=== PATIENT | female | born 1935 | race African-American/Black ===

== ENCOUNTER 2016-06-01 14:19 | Inpatient (IN) | payer MEDICARE, MEDICAID ==
[~2016-06-01] VITALS: Ht 160 cm; Wt 87.7 kg
[~2016-06-01 14:19] MED LIST: ALBUTEROL SULF0.5 ML IH; ARTIFICIAL TEA1 EACH OP; AZITHROMYCIN250 MG PO; CARAFATE 11 GM/10 ML PO; CARVEDILOL 1212.5 MG PO; FERROUS SULFAT325 MG PO; FUROSEMIDE 20MG20 MG PO; GABAPENTIN300 MG PO; HUMALOG KW100 UNIT/1 SC; IBUPROFEN800 MG PO; IMODIUM 2MG. CAP2 MG PO; IMODIUM A-1 MG/7.5 M PO; INVANZ1 G1 IM; KEPPRA 500 MG500 MG PO; KEPPRA500 MG PO; LEVAQUIN500 MG PO; LOSARTAN POTAS100 MG PO; METFORMIN1000 MG PO; MICRO-K 10 MEQ10 MEQ PO; MINTOX PO; MIRALAX17 GM/PACK PO; MULTI VITAMINS1 TA1 PO; NORVASC 10MG. T10 MG PO; PRILOSEC20 M1 PO; PROTONIX40 MG PO; ROBITUSSIN DM S10 ML NG; ROCEPHIN 1 GM VI1 GM IM; SENNA LAXATIVE8.6 MG PO; TOBRAMYCIN300 MG/5 M IV; TRAMADOL 50MG T50 M1 PO; TYLENOL 8 HOUR650 MG PO; VITAMIN D22000 IU PO; VITAMIN D50000 I1 PO; VITAMIN D50000 IU PO; Z-TAB1 TAB PO; ZITHROMAX Z-PA250 M2 PO; ZOFRAN ODT8 MG PO
[2016-06-01 14:20] VITALS: BP 127/57
--- NOTE | 2016-06-01 14:57 | Emergency Room Report ---
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 N Clinical Suspician of Infection? N Mental Status: 1 - Regular (Normal Baseline) Sepsis Risk: Have you (or family members/close friends) recently traveled outside the [place]? N If Yes, where/when: Have you had exposure to infectious disease within the past month? N TB? Other? Specify: Source patient, RN notes reviewed, [facility] records Exam Limitations no limitations Comment Sent to the ED from [place] because she reportedly had a high K+ level on labs drawn this AM. Pt has no complaints but she does have a history of CKD [facility] Cardiac Chest Pain Chest pain indicative of cardiac No ALLERGIES Coded Allergies: NSAIDS (Non-Steroidal Anti-Inflamma (05/10/16) tuberculin, purified protein deriva (From TUBERSOL) (04/13/15) Home Medications Reported Medications Dextran 70/Hypromellose (Artificial Tears) 1 EACH OP BID OMEPRAZOLE MAGNESIUM (Prilosec 20MG) 20 MG PO DAILY MULTIVITAMIN (Multivitamins) 1 SGL PO DAILY ALBUTEROL-IPRATROPIUM (Iprat-Albut 0.5-3(2.5) MG/3 Ml) 3 ML IH QIDP PRN BREATHING Insulin Lispro (Humalog Kwikpen) 0 SC QID AMLODIPINE BESYLATE (Norvasc) 10 MG PO DAILY Carvedilol (Carvedilol 12.5MG) 12.5 MG PO BID Losartan Potassium (Losartan 100MG) 100 MG PO DAILY Acetaminophen (Tylenol 8 Hour) 650 MG PO Q6HPRN Gabapentin (Gabapentin 300MG) 300 MG PO QHS Levetiracetam (Keppra 500 Mg Tablet) 500 MG PO BID METFORMIN HCL (Metformin) 1,000 MG PO BID History Medical History General CAD? No Angina: No [place]: No Hypertension? Yes Hyperlipidemia? Yes CHF? Yes DVT? No PE? No COPD? No Asthma? No Anemia? No GERD? Yes Gastric ulcers? No GI Bleed? No Hernia? No Thyroid Problems? No Hypothyroidism? No CVA? Yes Seizures? Yes Diabetes? Yes Insulin Dependent: Yes Insulin Pump: No Home FSBS? Yes Renal Insuffiency? No End Stage Renal Disease? No UTI? Yes Stones? No BPH? No GB Disease: No Nephritic Syndrome? No Asplenia? No Hepatitis? No Sickle Cell Disease? No Arthritis? No Migraines? No Cataracts? No Glaucoma? No MRSA? No HIV? No TB? No Anxiety? No Depression? No Cancer? No More? Yes Additional hx: E-COLI, OSTEOPOROSIS Immunization Hx Ped.Immunizations UTD Yes DT/Tetanus Unknown Flu 12/30/15 Pneumonia Refuses Surgical Hx Previous Surgery?Y BRAIN ANEURSYM Hysterect Social History Smoking Hx Smoker: Never Smoker Tobacco: No Packs/day N/A Are you/the child exposed to second-hand smoke: No Alcohol Alcohol: No Review of Systems All Other Systems Reviewed and Negative Constitutional see HPI Eyes no symptoms reported Respiratory see HPI Cardiovascular see HPI Physical Exam Vital Signs Vital Signs Date Time Temp Pulse Resp B/P Pulse O2 O2 Flow FiO2 Ox Delivery Rate 06/02 2015 98.0 57 20 119/47 99 06/01 1934 98.0 52 20 109/47 93 06/01 1815 56 18 107/51 96 06/01 1724 98.5 86 18 93/66 100 06/01 1531 98.5 99 18 93/66 100 06/01 1452 98.5 68 18 119/44 97 06/01 1420 98.5 62 18 127/57 97 General Appearance normal appearance, WD/WN, no apparent distress Respiratory Status No: respiratory distress. 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 No Results/Orders Laboratory Tests 06/01/16 1925: Sodium 145, Potassium 5.9 H, Chloride 117 H, Carbon Dioxide 15 L, BUN 22 H, Creatinine 2.0 H, Estimated Creat Clear 29 L, Estimated GFR (MDRD) 24 L, Glucose 160 H, Calcium 8.8 06/01/16 1745: Potassium 5.9 H 06/01/16 1450: Sodium 145, Potassium 6.9 *H, Chloride 118 H, Carbon Dioxide 17 L, BUN 23 H, Creatinine 1.9 H, Estimated Creat Clear 31 L, Estimated GFR (MDRD) 25 L, Glucose 84, Calcium 8.7, Total Bilirubin 0.2, AST 13 L, ALT 21, Alkaline Phosphatase 76, Total Protein 7.7, Albumin 2.1 L, Globulin 5.6 H, Albumin/ Globulin Ratio 0.4 L, WBC 6.0, RBC 3.43 L, Hgb 9.6 L, Hct 33.0 L, MCV 96.1, RDW 15.2, Plt Count 179, MPV 8.4, Gran % 53.9, Gran # 3.2, Lymphocytes % 39.5, Monocytes % 4.9, Eosinophils % 0.9, Basophils % 0.9, Lymphocytes # 2.4, Monocytes # 0.3, Eosinophils # 0.1, Basophils # 0.1, PUBS MCHC 29.2 L, MCH 28.1 Current Medication Orders Sig/Juan Start time Last Medication Dose Route Stop Time Status Admin Albuterol 2.5 MG ONCE ONE 06/01 1630 DC 06/01 INH 06/01 1631 1639 Albuterol 2.5 MG ONCE ONE 06/01 1630 DC 06/01 INH 06/01 1631 1639 Dextrose 50 ML ONCE ONE 06/01 1630 DC 06/01 IVP 06/01 1631 1635 Dextrose 50 ML ONCE ONE 06/01 1630 DC 06/01 IVP 06/01 1631 1636 Insulin Human Regular 10 UNITS ONCE ONE 06/01 1630 DC 06/01 IVP 06/01 1631 1636 Sodium Polystyrene 15 GM ONCE ONE 06/01 1630 DC 06/01 Sulfonate PO 06/01 1631 1635 Dextrose 0 .STK-MED ONE 06/01 1626 DC .ROUTE Insulin Human Regular 0 .STK-MED ONE 06/01 1626 DC .ROUTE Sodium Polystyrene 0 .STK-MED ONE 06/01 1625 DC Sulfonate .ROUTE Sodium Chloride 10 ML PRN PRN 06/01 1545 AC IV 06/02 1543 Orders Procedure Date/time Status ARTERIAL BLOOD GAS REQUEST 06/01 2024 Active BASIC METABOLIC PROFILE 06/01 1847 Complete POTASSIUM 06/01 1733 Complete RT REQUEST ALBUTEROL NEB 06/01 1620 Active IV SALINE LOCK 06/01 1543 Active CBC WITH AUTO DIFF 06/01 1543 Complete CHEM 12 PROFILE 06/01 154 Complete ELECTROCARDIOGRAM REQUEST 06/01 1455 Active 12 LEAD EKG-SMITH (INITIAL) 06/01 UNK Active CM/EKG CM/EKG EKG NSR with sinus arrhythmia, Low voltage, NS STT changes Departure Departure Time of Disposition 2022 Disposition Still a Patient Clinical Impression Primary Impression: Hyperkalemia Secondary Impressions: Chronic kidney disease, stage 3, Metabolic acidosis Condition STABLE Referrals Kiel Blank MD Additional Instructions Admitted to OBS by Dr. Blank....give IVF's and more kayexalate and albuterol nebs to lower K+ Discharge Counseling Counseled pt/family regarding diagnosis, test results, follow up needs ED Critical Care Critical Care No If Critical Care minutes are documented, the time involved in the performance of seperately reportable procedures was not counted toward critical care time documented. I directly delivered medical care to this critically ill and/or injured patient. Timely evaluation and treatment was necessary to address the significant organ system(s) dysfunction present in this patient. at 2028
--- NOTE | 2016-06-01 14:57 | Emergency Room Report ---
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 N Clinical Suspician of Infection? N Mental Status: 1 - Regular (Normal Baseline) Sepsis Risk: Have you (or family members/close friends) recently traveled outside the [place]? N If Yes, where/when: Have you had exposure to infectious disease within the past month? N TB? Other? Specify: Source patient, RN notes reviewed, [facility] records Exam Limitations no limitations Comment Sent to the ED from [place] because she reportedly had a high K+ level on labs drawn this AM. Pt has no complaints but she does have a history of CKD from the records at the [facility] Cardiac Chest Pain Chest pain indicative of cardiac No ALLERGIES Coded Allergies: NSAIDS (Non-Steroidal Anti-Inflamma (05/10/16) tuberculin, purified protein deriva (From TUBERSOL) (04/13/15) Home Medications Reported Medications Dextran 70/Hypromellose (Artificial Tears) 1 EACH OP BID OMEPRAZOLE MAGNESIUM (Prilosec 20MG) 20 MG PO DAILY MULTIVITAMIN (Multivitamins) 1 SGL PO DAILY ALBUTEROL-IPRATROPIUM (Iprat-Albut 0.5-3(2.5) MG/3 Ml) 3 ML IH QIDP PRN BREATHING Insulin Lispro (Humalog Kwikpen) 0 SC QID AMLODIPINE BESYLATE (Norvasc) 10 MG PO DAILY Carvedilol (Carvedilol 12.5MG) 12.5 MG PO BID Losartan Potassium (Losartan 100MG) 100 MG PO DAILY Acetaminophen (Tylenol 8 Hour) 650 MG PO Q6HPRN Gabapentin (Gabapentin 300MG) 300 MG PO QHS Levetiracetam (Keppra 500 Mg Tablet) 500 MG PO BID METFORMIN HCL (Metformin) 1,000 MG PO BID History Medical History General CAD? No Angina: No [place]: No Hypertension? Yes Hyperlipidemia? Yes CHF? Yes DVT? No PE? No COPD? No Asthma? No Anemia? No GERD? Yes Gastric ulcers? No GI Bleed? No Hernia? No Thyroid Problems? No Hypothyroidism? No CVA? Yes Seizures? Yes Diabetes? Yes Insulin Dependent: Yes Insulin Pump: No Home FSBS? Yes Renal Insuffiency? No End Stage Renal Disease? No UTI? Yes Stones? No BPH? No GB Disease: No Nephritic Syndrome? No Asplenia? No Hepatitis? No Sickle Cell Disease? No Arthritis? No Migraines? No Cataracts? No Glaucoma? No MRSA? No HIV? No TB? No Anxiety? No Depression? No Cancer? No More? Yes Additional hx: E-COLI, OSTEOPOROSIS Immunization Hx Ped.Immunizations UTD Yes DT/Tetanus Unknown Flu 12/30/15 Pneumonia Refuses Surgical Hx Previous Surgery?Y BRAIN ANEURSYM Hysterect Social History Smoking Hx Smoker: Never Smoker Tobacco: No Packs/day N/A Are you/the child exposed to second-hand smoke: No Alcohol Alcohol: No Review of Systems All Other Systems Reviewed and Negative Constitutional see HPI Eyes no symptoms reported Respiratory see HPI Cardiovascular see HPI Physical Exam Vital Signs Vital Signs Date Time Temp Pulse Resp B/P Pulse O2 O2 Flow FiO2 Ox Delivery Rate 06/02 2015 98.0 57 20 119/47 99 06/01 1934 98.0 52 20 109/47 93 06/01 1815 56 18 107/51 96 06/01 1724 98.5 86 18 93/66 100 06/01 1531 98.5 99 18 93/66 100 06/01 1452 98.5 68 18 119/44 97 06/01 1420 98.5 62 18 127/57 97 General Appearance normal appearance, WD/WN, no apparent distress Respiratory Status No: respiratory distress. 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 No Results/Orders Laboratory Tests 06/01/16 1925: Sodium 145, Potassium 5.9 H, Chloride 117 H, Carbon Dioxide 15 L, BUN 22 H, Creatinine 2.0 H, Estimated Creat Clear 29 L, Estimated GFR (MDRD) 24 L, Glucose 160 H, Calcium 8.8 06/01/16 1745: Potassium 5.9 H 06/01/16 1450: Sodium 145, Potassium 6.9 *H, Chloride 118 H, Carbon Dioxide 17 L, BUN 23 H, Creatinine 1.9 H, Estimated Creat Clear 31 L, Estimated GFR (MDRD) 25 L, Glucose 84, Calcium 8.7, Total Bilirubin 0.2, AST 13 L, ALT 21, Alkaline Phosphatase 76, Total Protein 7.7, Albumin 2.1 L, Globulin 5.6 H, Albumin/ Globulin Ratio 0.4 L, WBC 6.0, RBC 3.43 L, Hgb 9.6 L, Hct 33.0 L, MCV 96.1, RDW 15.2, Plt Count 179, MPV 8.4, Gran % 53.9, Gran # 3.2, Lymphocytes % 39.5, Monocytes % 4.9, Eosinophils % 0.9, Basophils % 0.9, Lymphocytes # 2.4, Monocytes # 0.3, Eosinophils # 0.1, Basophils # 0.1, PUBS MCHC 29.2 L, MCH 28.1 Current Medication Orders Sig/Juan Start time Last Medication Dose Route Stop Time Status Admin Albuterol 2.5 MG ONCE ONE 06/01 1630 DC 06/01 INH 06/01 1631 1639 Albuterol 2.5 MG ONCE ONE 06/01 1630 DC 06/01 INH 06/01 1631 1639 Dextrose 50 ML ONCE ONE 06/01 1630 DC 06/01 IVP 06/01 1631 1635 Dextrose 50 ML ONCE ONE 06/01 1630 DC 06/01 IVP 06/01 1631 1636 Insulin Human Regular 10 UNITS ONCE ONE 06/01 1630 DC 06/01 IVP 06/01 1631 1636 Sodium Polystyrene 15 GM ONCE ONE 06/01 1630 DC 06/01 Sulfonate PO 06/01 1631 1635 Dextrose 0 .STK-MED ONE 06/01 1626 DC .ROUTE Insulin Human Regular 0 .STK-MED ONE 06/01 1626 DC .ROUTE Sodium Polystyrene 0 .STK-MED ONE 06/01 1625 DC Sulfonate .ROUTE Sodium Chloride 10 ML PRN PRN 06/01 1545 AC IV 06/02 1543 Orders Procedure Date/time Status ARTERIAL BLOOD GAS REQUEST 06/01 2024 Active BASIC METABOLIC PROFILE 06/01 1847 Complete POTASSIUM 06/01 1733 Complete RT REQUEST ALBUTEROL NEB 06/01 1620 Active IV SALINE LOCK 06/01 1543 Active CBC WITH AUTO DIFF 06/01 1543 Complete CHEM 12 PROFILE 06/01 154 Complete ELECTROCARDIOGRAM REQUEST 06/01 1455 Active 12 LEAD EKG-SMITH (INITIAL) 06/01 UNK Active CM/EKG CM/EKG EKG NSR with sinus arrhythmia, Low voltage, NS STT changes Departure Departure Time of Disposition 2022 Disposition Still a Patient Clinical Impression Primary Impression: Hyperkalemia Secondary Impressions: Chronic kidney disease, stage 3, Metabolic acidosis Condition STABLE Referrals Kiel Blank MD Additional Instructions Admitted to OBS by Dr. Blank....give IVF's and more kayexalate and albuterol nebs to lower K+ Discharge Counseling Counseled pt/family regarding diagnosis, test results, follow up needs ED Critical Care Critical Care No If Critical Care minutes are documented, the time involved in the performance of seperately reportable procedures was not counted toward critical care time documented. I directly delivered medical care to this critically ill and/or injured patient. Timely evaluation and treatment was necessary to address the significant organ system(s) dysfunction present in this patient. at 2028
[2016-06-01 16:06] LABS: HEMOGLOBIN 9.6 g/dL (12.2-16.2); LYMPH # 2.4 K/mm3 (0.7-4.5); LYMPH % 39.5 % (10-50.0)
[2016-06-01 20:39] LABS: ARTERIAL PO2 73.1 MMHG (80-100)
[2016-06-01 20:40] LABS: ALLEN'S TEST ACCEPTABLE; ARTERIAL ABE -11.8 MMOL/L (-2.4-+2.3); ARTERIAL TCO2 16.2 MMOL/L (23-27); OXYGEN ROOM AIR
[2016-06-01 22:57] VITALS: BP 127/53
[2016-06-01 23:51] VITALS: BP 125/84
[2016-06-02] VITALS (9 sets, daily range): BP systolic 98–152; BP diastolic 50–72
[2016-06-02] MEDS ORDERED: IMODIUM A-D2 M3 PO (02:06)
[2016-06-02] MEDS ORDERED: MIRTAZAPINE15 M1 PO (02:07)
[2016-06-02] MEDS ORDERED: PROSOURCE PLUS30 ML PO (02:10)
[2016-06-02] MEDS ORDERED: NYSTATIN OINTME15 GM EX (02:12)
[2016-06-02 06:44] LABS: HEMOGLOBIN 9.8 g/dL (12.2-16.2); LYMPH # 3.1 K/mm3 (0.7-4.5); LYMPH % 40.5 % (10-50.0)
--- NOTE | 2016-06-02 08:58 | HISTORY AND PHYSICAL REPORT ---
Demographics: Admit date: 06/01/16 Chief complaint: Hyperkalemia at shelter PRIMARY DIAGNOSIS: HYPERKALEMIA Allergies: Coded Allergies: NSAIDS (Non-Steroidal Anti-Inflamma (05/10/16) tuberculin, purified protein deriva (From TUBERSOL) (04/13/15) History of present illness: History of present illness: 81-year-old black female, resident of local shelter who was noticed on laboratory studies yesterday to have high potassium and was transferred to the emergency department. In the emergency department she was given calcium gluconate, insulin and fluids and one dose of Kayexalate and admitted to hospital for further evaluation. Of note, she is on angiotensin receptor sinan. Also of note, her potassium levels were normal on multiple tests here at the hospital over the past year. Past medical history: Family HX Family Hx Insignificant Yes Immunization HX Ped.Immunizations UTD Yes DT/Tetanus Unknown Flu 12/30/15 Pneumonia Refuses TB Test in last year No General CAD? No Angina: No [place]: No Hypertension? Yes Hyperlipidemia? Yes CHF? Yes DVT? No PE? No COPD? No Asthma? No Anemia? No GERD? Yes Gastric ulcers? No GI Bleed? No Hernia? No Thyroid Problems? No Hypothyroidism? No CVA? Yes Seizures? Yes Diabetes? Yes Insulin Dependent: Yes Insulin Pump: No Home FSBS? Yes Renal Insuffiency? No UTI? Yes Stones? No BPH? No GB Disease: No Nephritic Syndrome? No Asplenia? No Hepatitis? No Sickle Cell Disease? No Arthritis? No Migraines? No Cataracts? No Glaucoma? No MRSA? No HIV? No TB? No Anxiety? No Depression? No Cancer? No More? Yes Additional hx: E-COLI, OSTEOPOROSIS Past Surgical HX Previous Surgery?Y BRAIN ANEURSYM Hysterect Current home meds: Reported Medications Dextran 70/Hypromellose (Artificial Tears) 1 EACH OP BID OMEPRAZOLE MAGNESIUM (Prilosec 20MG) 20 MG PO DAILY MULTIVITAMIN (Multivitamins) 1 SGL PO DAILY ALBUTEROL-IPRATROPIUM (Iprat-Albut 0.5-3(2.5) MG/3 Ml) 3 ML IH QIDP PRN BREATHING Insulin Lispro (Humalog Kwikpen) 0 SC QID Loperamide HCl (Imodium A-D) 2 MG PO Q3HP PRN DIARRHEA Mirtazapine 15 MG PO DAILY Amino AC/Protein Hydr/Whey Pro (Prosource Plus Liquid Packet) 30 ML PO TID Nystatin (Nystatin Ointment 15GM) 1 JUNAID EX QIDP PRN SKIN IRRITATION AMLODIPINE BESYLATE (Norvasc) 10 MG PO DAILY Carvedilol (Carvedilol 12.5MG) 12.5 MG PO BID Losartan Potassium (Losartan 100MG) 100 MG PO DAILY Acetaminophen (Tylenol 8 Hour) 650 MG PO Q6HPRN Gabapentin (Gabapentin 300MG) 300 MG PO QHS Levetiracetam (Keppra 500 Mg Tablet) 500 MG PO BID METFORMIN HCL (Metformin) 1,000 MG PO BID Social Hx: Smoking HX Tobacco No Packs/day N/A Are you/the child exposed to second-hand smoke: No Alcohol Alcohol: No Hx of Drug Use Drug Use? No Patien't marital status is single Patient's support system is excellent Review of systems: Constitutional malaise, weakness. Respiratory No: no symptoms reported. Cardiovascular No no symptoms reported Gastrointestinal/Abdominal No no symptoms reported Genitourinary No: no symptoms reported. Musculoskeletal No: no symptoms reported. Neurological No: see HPI. Exam: Lab data for last 24 hours: Laboratory Tests 06/02/16 0630: WBC 7.6, RBC 3.41 L, Hgb 9.8 L, Hct 32.2 L, MCV 94.4, RDW 15.3, Plt Count 170 , MPV 8.8, Gran % 52.1, Gran # 3.9, Lymphocytes % 40.5, Monocytes % 5.9, Eosinophils % 1.0, Basophils % 0.6, Lymphocytes # 3.1, Monocytes # 0.4, Eosinophils # 0.1, Basophils # 0.1, PUBS MCHC 30.6 L, MCH 28.9 06/02/16 0605: Sodium 145, Potassium 6.0 H, Chloride 117 H, Carbon Dioxide 18 L, BUN 20 H, Creatinine 1.7 H, Estimated Creat Clear 35 L, Estimated GFR (MDRD) 29 L, Glucose 81, Calcium 8.8 06/01/165: ABG pH 7.27 L, ABG pCO2 (Temp Corrct 34.0 L, ABG pO2 (Temp Correct 73.1 L, ABG HCO3 15.2 L, ABG Total CO2 16.2 L, ABG O2 Sat (Calculated) 94.0, ABG Base Excess -11.8 L, Bon Test ACCEPTABLE 06/01/161924: Sodium 145, Potassium 5.9 H, Chloride 117 H, Carbon Dioxide 15 L, BUN 22 H, Creatinine 2.0 H, Estimated Creat Clear 29 L, Estimated GFR (MDRD) 24 L, Glucose 160 H, Calcium 8.8 06/01/16 174: Potassium 5.9 H 06/01/16 1450: Sodium 145, Potassium 6.9 *H, Chloride 118 H, Carbon Dioxide 17 L, BUN 23 H, Creatinine 1.9 H, Estimated Creat Clear 31 L, Estimated GFR (MDRD) 25 L, Glucose 84, Calcium 8.7, Total Bilirubin 0.2, AST 13 L, ALT 21, Alkaline Phosphatase 76, Total Protein 7.7, Albumin 2.1 L, Globulin 5.6 H, Albumin/ Globulin Ratio 0.4 L, WBC 6.0, RBC 3.43 L, Hgb 9.6 L, Hct 33.0 L, MCV 96.1, RDW 15.2, Plt Count 179, MPV 8.4, Gran % 53.9, Gran # 3.2, Lymphocytes % 39.5, Monocytes % 4.9, Eosinophils % 0.9, Basophils % 0.9, Lymphocytes # 2.4, Monocytes # 0.3, Eosinophils # 0.1, Basophils # 0.1, PUBS MCHC 29.2 L, MCH 28.1 Admission vital signs: 1ST Vital Signs Result Date Time Pulse Ox 97 06/01 1420 B/P 127/57 06/01 1420 Temp 98.5 06/01 142 Pulse 62 06/01 1420 Resp 18 06/01 1420 O2 Delivery ROOM AIR 06/01 2056 Additional information: Patient is awake, face is symmetric, she is pleasant and communicative but very disoriented and previously noted dementia, that has been fixture of this patient 's exam since her significant brain hemorrhage. Cardiopulmonary exam is unchanged, abdomen is soft and nontender, she has no significant edema. Skin breakdown noted on pictorial record at the nursing notes. Plan: Problem List 1. Hyperkalemia Plan: Plan will be to continue anti-potassium lowering therapy, hold angiotensin receptor sinan. Hold metformin given her elevated creatinine. at 0858
--- NOTE | 2016-06-02 10:32 | PHARMACY CLINIC NOTE ---
Patient Demographics Patient Demographics Admission date: 06/01/16 Date: 06/02/16 Time: 1032 Allergies Coded Allergies: NSAIDS (Non-Steroidal Anti-Inflamma (05/10/16) tuberculin, purified protein deriva (From TUBERSOL) (04/13/15) HEIGHT- FT: 5 IN: 3.00 K.730 VTE General Information Labs: Laboratory Tests 06/02 06/01 0630 1450 Hematology Hgb (12.2 - 16.2 g/dL) 9.8 L 9.6 L Hct (37.0 - 47.0 %) 32.2 L 33.0 L Plt Count (142 - 424 K/mm3) 170 179 Disclaimer The following section includes nursing documentation that has been pulled in for pharmacy review. Patient's VTE score: 2 Patient's VTE Risk: VERY LOW RISK Clinical trial participant? No VTE prophylaxis [id number] VTE prophylaxis ordered? Yes Type of prophylaxis/treatment: ICD at 1032
[2016-06-03] VITALS (7 sets, daily range): BP systolic 138–155; BP diastolic 64–84
--- NOTE | 2016-06-03 07:38 | ACUTE CARE PROGRESS NOTE (QUA) ---
Progress Notes Subjective Date 06/03/16 Time 0736 Note Laboratory Tests 06/03/16 0655: Sodium 147 H, Potassium 4.3, Chloride 120 H, Carbon Dioxide 19 L, BUN 10, Creatinine 1.3 H, Estimated Creat Clear 45 L, Estimated GFR (MDRD) 39 L, Glucose 97, Calcium 8.3 L Patient continues to be demented but pleasant and talkative. Has no real symptom complaints today. Anterior lung samuel are clear, abdomen soft, heart rate regular. Exam limited by significant morbid obesity. Laboratory studies reviewed and improving. Objective Findings Last VS-Temp:98.5 B/P:155/84 Pulse:82 Resp:18 SaO2:95 ROOM AIR Last weight lbs:189 oz:0 K.730 Method:Bed Scales Assessment/Plan Problem List 1. Hyperkalemia 2. Kidney injury 3. Metabolic acidosis Patient condition Improving Plan: continue current care, continue cautious IV fluids as her metabolic acidosis is improving. Hyperkalemia has also improved. Place calcium again today. Continue to be off angiotensin receptor blockers. Probable transfer to custodial if electrolyte panel continues to improve tomorrow. This inpt stay is expected to cross 2 MNs from start of care Yes at 0737
[2016-06-04 04:01] VITALS: BP 142/58
--- NOTE | 2016-06-04 07:59 | ACUTE CARE PROGRESS NOTE (QUA) ---
Progress Notes Subjective Date 06/04/16 Time 0759 Note Patient is more alert, talkative, bright. Lungs clear, heart rate regular, abdomen soft. Eating well. Objective Findings Last VS-Temp:98.5 B/P:142/58 Pulse:72 Resp:18 SaO2:94 ROOM AIR Last weight lbs:193 oz:4 K.657 Method:Bed Scales Assessment/Plan Problem List 1. Hyperkalemia 2. Kidney injury 3. Metabolic acidosis Patient condition Improving Plan: continue current care, initiate discharge plan This inpt stay is expected to cross 2 MNs from start of care Yes at 0751
[2016-06-04 08:00] VITALS: BP 152/89
--- NOTE | 2016-06-04 08:06 | DISCHARGE SUMMARY STANDARD ---
Demographics Admit date: 06/01/16 Discharge date: 06/04/16 History of present illness History of present illness 81-year-old black female, resident [facility] local [facility] who was noticed on laboratory studies yesterday to have high potassium and was transferred to the emergency department. In the emergency department she was given calcium gluconate, insulin and fluids and one dose of Kayexalate and admitted to hospital for further evaluation. Of note, she is on angiotensin receptor sinan. Also of note, her potassium levels were normal on multiple tests here at the hospital over the past year. Hospital Course Hospital Course: Patient was admitted, placed on potassium lowering medications including Kayexalate, calcium gluconate infusions and fluids. She was found to have a metabolic acidosis but this improved with fluid hydration. Interestingly she had a couple of days of recurrent potassium elevation but this was successfully treated with the above-mentioned products. Losartan was discontinued because of its propensity to cause hyperkalemia. This morning she is reached maximal medical improvement. Potassium levels are acceptable, and she will need to continue off her losartan. She will need BMP in one week and I recommended a low potassium diet. Discharge diagnoses Problem List 1. Hyperkalemia 2. Kidney injury 3. Metabolic acidosis Medications Medications: Discharge meds are as noted. Follow up Follow up in office in: 5 DAYS with: Kan Melchor at 0805
[2016-06-04 08:45] VITALS: BP 152/89
== END 2016-06-04 09:55 | DRG 641 ==
LOC: ER 14:19 → 2ND 20:31 → ER 20:31 → 2ND 21:27
PROVIDERS: General Practice; Internal Medicine Adolescent Medicine
DX: E87.5 Hyperkalemia (principal); E87.2 Acidosis; E11.9 Type 2 diabetes mellitus without complications; I69.320 Aphasia following cerebral infarction; I10 Essential (primary) hypertension
CPT/HCPCS: G0378

== ENCOUNTER → 2016-09-14 | Outpatient (CLI) | payer MEDICARE, MEDICAID ==
[~2016-09-14] MED LIST changes: +IMODIUM A-D2 M3 PO; +MIRTAZAPINE15 M1 PO; +NYSTATIN OINTME15 GM EX; +PROSOURCE PLUS30 ML PO
--- NOTE | 2016-09-14 12:04 | RADIOLOGY REPORT PS360 ---
BARIUM ENEMA COMPARISON: None HISTORY: Possible blood in stool TECHNIQUE: A television maintenance man film was obtained however following this and following explanation of the study the patient refused to have the study performed and the study was canceled. FINDINGS: The television maintenance man film shows a moderate amount gas within the transverse colon and sigmoid colon. There are moderate degenerative changes of both hips. IMPRESSION: Automatic Car Wash Attendant film only, the scheduled barium enema was canceled
--- NOTE | 2016-09-14 12:04 | RADIOLOGY REPORT PS360 ---
BARIUM ENEMA COMPARISON: None HISTORY: Possible blood in stool TECHNIQUE: A velvet steamer film was obtained however following this and following explanation of the study the patient refused to have the study performed and the study was canceled. FINDINGS: The velvet steamer film shows a moderate amount gas within the transverse colon and sigmoid colon. There are moderate degenerative changes of both hips. IMPRESSION: Almond Pan Finisher film only, the scheduled barium enema was canceled
== END ==
LOC: RAD 09:54
DX: D64.9 Anemia, unspecified (principal); R19.7 Diarrhea, unspecified